=== PATIENT | female | born 1980 | race African-American/Black ===

== ENCOUNTER 2017-03-29 14:52 | Emergency (ER) | payer OTHER ==
[2017-03-29 15:23] VITALS: BP 117/69
--- NOTE | 2017-03-29 15:41 | UC ---
Skin Complaint HPI - HPI Summary HPI Summary: multiple small pimples turned abcesses on hand left breast and side, not draining, no fever, no hx of MRSA, daughter also has similar problem. - History of Current Complaint Chief Complaint: UCSkin Time Seen by Provider: 03/29/17 15:28 Stated Complaint: SKIN COMPLAINT Hx Obtained From: Patient Hx Last Menstrual Period: unknown, depo ?: No Onset/Duration: Sudden Onset, Lasting Days Skin Exposure Onset/Duration: Days Ago Onset Severity: Moderate Current Severity: Moderate Location: Discrete Character: Swelling, Pain, Redness, Raised Aggravating: Touch Alleviating: Nothing - Allergy/Home Medications Allergies/Adverse Reactions: Allergies Allergy/AdvReac Type Severity Reaction Status Date / Time Sulfa Antibiotics Allergy Hives Verified 03/29/17 15:23 Home Medications: Home Medications Docosahexaenoic Acid [ Dha] 200 mg PO DAILY 03/29/17 [History Confirmed 03/29/17] Review of Systems Constitutional: Negative Skin: Other - multiple abcesses on left breast and side, left arm Eyes: Negative ENT: Negative Respiratory: Negative Cardiovascular: Negative Gastrointestinal: Negative Genitourinary: Negative Motor: Negative Neurovascular: Negative Musculoskeletal: Negative Neurological: Negative Psychological: Negative All Other Systems Reviewed And Are Negative: Yes PMH/Surg Hx/FS Hx/Imm Hx Previously Healthy: Yes - Surgical History Surgical History: Yes Surgery Procedure, Year, and Place: hernia repairs 1992 - Family History Known Family History: Positive: Hypertension - Social History Alcohol Use: None Substance Use Type: None Smoking Status (MU): Light Every Day Tobacco Smoker Type: Cigarettes Amount Used/How Often: 6 per day - Immunization History Most Recent Influenza Vaccination: no Physical Exam Triage Information Reviewed: Yes Appearance: Well-Appearing, Well-Nourished, Pain Distress Vital Signs: Initial Vital Signs Temp 98 F 03/29/17 15:18 Pulse 76 03/29/17 15:18 Resp 16 03/29/17 15:18 BP 117/69 03/29/17 15:18 Pulse Ox 98 03/29/17 15:18 Vital Signs Reviewed: Yes Eye Exam: Normal ENT Exam: Normal Dental Exam: Normal Neck exam: Normal Neck: Positive: Supple, Nontender, No Lymphadenopathy Respiratory Exam: Normal Respiratory: Positive: Chest non-tender, Lungs clear, Normal breath sounds Cardiovascular Exam: Normal Cardiovascular: Positive: RRR, No Murmur, Pulses Normal Abdominal Exam: Normal Abdomen Description: Positive: Nontender, No Organomegaly, Soft Bowel Sounds: Positive: Present Musculoskeletal Exam: Normal Musculoskeletal: Positive: Strength Intact, ROM Intact, No Edema Neurological Exam: Normal Psychological Exam: Normal Skin: Positive: significant lesion(s) - multiple non draining abscess. Course/Dx - Course Course Of Treatment: hx obtained, exam performed, meds reviewed, treated for infection. - Differential Diagnoses - Skin Complaint Differential Diagnoses: Abscess, Cellulitis, Contact Dermatitis, Urticaria - Diagnoses Provider Diagnoses: multiple abscess on left arm and brest Discharge - Discharge Plan Condition: Stable Disposition: HOME Prescriptions: Sulfamethox/Trimethoprim DS* [Bactrim DS 800/160 TAB*] 1 tab PO BID #14 tab Patient Education Materials: Abscess (ED) Referrals: No Primary Care Phys,NOPCP [Medical Doctor] - Additional Instructions: 1. keep area clean and dry 2. take the medication as prescribed 3. warm compresses to areas if starts to drain, cover with bandage. 4. follow up if not improving.
== END 2017-03-29 16:05 | disposition home or self-care (01) ==
LOC: UCCORT 14:52
DX: N61.1 Abscess of the breast and nipple (principal); L02.414 Cutaneous abscess of left upper limb
CPT/HCPCS: 99212; G0463

== ENCOUNTER 2017-09-08 21:22 | Emergency (ER) | payer OTHER | END 2017-09-08 23:17 | disposition left against medical advice (07) | LOC: UCCORT 21:22 | DX: R05 Cough (principal); R09.81 Nasal congestion; Z53.21 Procedure and treatment not carried out due to patient leaving prior to being seen by health care provider ==

== ENCOUNTER 2017-09-10 14:57 | Emergency (ER) | payer OTHER ==
[2017-09-10 17:47] VITALS: BP 118/71
--- NOTE | 2017-09-10 18:05 | UC ---
Throat Pain/Nasal Danny HPI - HPI Summary HPI Summary: pt is c/o sinus congestion and facial pressure along with sneezing and a cough. her chest was burning with the cough but that got better; however, sinuses are not improving. pt admits to a headache but denies fever, bodyaches. symptoms for about 4-5 days with worsening. - History of Current Complaint Chief Complaint: UCRespiratory Stated Complaint: CONGESTION, VELASCO, SINUSES Time Seen by Provider: 09/10/17 17:52 Hx Obtained From: Patient Hx Last Menstrual Period: depo, post 9 mo ?: No Pain Intensity: 5 Cough: Nonproductive Associated Signs & Symptoms: Positive: Sinus Discomfort, Nasal Discharge. Negative: Fever Related History: Smoking - Epiglottits Risk Factors Epiglottis Risk Factors: Negative - Allergies/Home Medications Allergies/Adverse Reactions: Allergies Allergy/AdvReac Type Severity Reaction Status Date / Time Sulfa (Sulfonamide Allergy Hives Verified 09/10/17 17:47 Antibiotics) PMH/Surg Hx/FS Hx/Imm Hx Previously Healthy: Yes - Surgical History Surgical History: Yes Surgery Procedure, Year, and Place: hernia repairs 1992 - Family History Known Family History: Positive: Cardiac Disease, Hypertension, Diabetes - Social History Occupation: Employed Full-time Lives: With Family Alcohol Use: None Substance Use Type: None Smoking Status (MU): Light Every Day Tobacco Smoker Type: Cigarettes Amount Used/How Often: 6 per day - Immunization History Most Recent Influenza Vaccination: no Vaccination Up to Date: Yes Review of Systems Constitutional: Negative, Fatigue Skin: Negative Eyes: Negative ENT: Ear Ache, Nasal Discharge, Sinus Congestion, Sinus Pain/Tenderness Respiratory: Cough Cardiovascular: Negative Gastrointestinal: Negative Genitourinary: Negative Motor: Negative Neurovascular: Negative Musculoskeletal: Negative Neurological: Negative Psychological: Negative Is Patient Immunocompromised?: No All Other Systems Reviewed And Are Negative: Yes Physical Exam Triage Information Reviewed: Yes Appearance: Well-Appearing Vital Signs: Initial Vital Signs Temp 98.8 F 09/10/17 17:42 Pulse 84 09/10/17 17:42 Resp 18 09/10/17 17:42 BP 118/71 09/10/17 17:42 Pulse Ox 99 09/10/17 17:42 Vital Signs Reviewed: Yes Eye Exam: Normal ENT: Positive: Pharynx normal, Nasal congestion, Nasal drainage, TMs normal, Sinus tenderness Neck: Positive: Supple, Nontender, No Lymphadenopathy Respiratory: Positive: Chest non-tender, Lungs clear, Normal breath sounds Cardiovascular: Positive: RRR, No Murmur Abdomen Description: Positive: Nontender, No Organomegaly, Soft Bowel Sounds: Positive: Present Musculoskeletal: Positive: No Edema Neurological: Positive: Alert Psychological: Positive: Age Appropriate Behavior Skin Exam: Normal Throat Pain/Nasal Course/Dx - Course Course Of Treatment: sinusitis on exam but symptoms only 4-5 days. will tx otc flonase and decongestant. if not improving, will add antibiotic. - Differential Dx/Diagnosis Provider Diagnoses: sinusitis Discharge - Discharge Plan Condition: Stable Disposition: HOME Prescriptions: Amoxicillin/Clavulanate TAB* [Augmentin TAB 875*] 875 mg PO BID 10 Days #20 tab Patient Education Materials: Sinusitis (ED) Referrals: Keren Bueno MD [Primary Care Provider] - 7 Days Additional Instructions: start flonase over the counter per label and a decongestant per label as well. if no improving in 1-2 days start the antibiotic. start the antibiotic sooner if current symptoms worsening.
== END 2017-09-10 18:10 | disposition home or self-care (01) ==
LOC: UCCORT 14:57
DX: J32.9 Chronic sinusitis, unspecified (principal); F17.210 Nicotine dependence, cigarettes, uncomplicated
CPT/HCPCS: 99212; G0463

== ENCOUNTER 2018-08-05 14:07 | Emergency (ER) | payer OTHER ==
[2018-08-05 15:11] VITALS: BP 117/80
--- NOTE | 2018-08-05 15:38 | UC ---
Complaint Female HPI - HPI Summary HPI Summary: Per burner hand "states was seen at an urgent care 9-10days ago for an abcess, was treated with cephalexin and now states has a yeast infection. c/o white vaginal discharge and itching x 4 days. " -abscess is much better. It was not drained. on genitals, started after shaving , folliculitis. -has had yeast infections and she is certain thsi is lele same. she gets them every time she takes an abx. - History Of Current Complaint Chief Complaint: UCGU Stated Complaint: PERSONAL Time Seen by Provider: 08/05/18 15:36 Hx Last Menstrual Period: unknown Pain Intensity: 0 - Allergies/Home Medications Allergies/Adverse Reactions: Allergies Allergy/AdvReac Type Severity Reaction Status Date / Time Sulfa (Sulfonamide Allergy Hives Verified 08/05/18 15:08 Antibiotics) Home Medications: Home Medications Cephalexin CAP* [Keflex 500 CAP*] 500 mg PO TID 08/05/18 [History Confirmed 06/13] PMH/Surg Hx/FS Hx/Imm Hx Previously Healthy: Yes - Surgical History Surgical History: Yes Surgery Procedure, Year, and Place: hernia repairs 1992 - Family History Known Family History: Positive: Cardiac Disease, Hypertension, Diabetes - Social History Alcohol Use: Rare Substance Use Type: None Smoking Status (MU): Light Every Day Tobacco Smoker Type: Cigarettes Amount Used/How Often: 6 per day - Immunization History Most Recent Influenza Vaccination: no Vaccination Up to Date: Yes Review of Systems All Other Systems Reviewed And Are Negative: Yes Constitutional: Positive: Negative Skin: Positive: Negative Eyes: Positive: Negative ENT: Positive: Negative Respiratory: Positive: Negative Cardiovascular: Positive: Negative Gastrointestinal: Positive: Negative Genitourinary: Positive: Vaginal/Penile Burning, Vaginal/Penile Discharge Motor: Positive: Negative Neurovascular: Positive: Negative Musculoskeletal: Positive: Negative Neurological: Positive: Negative Psychological: Positive: Negative Is Patient Immunocompromised?: No Physical Exam Triage Information Reviewed: Yes Appearance: Well-Appearing, No Pain Distress, Well-Nourished - very pleasant Vital Signs: Initial Vital Signs Temp 97.7 F 08/05/18 15:07 Pulse 63 08/05/18 15:07 Resp 15 08/05/18 15:07 BP 117/80 08/05/18 15:07 Pulse Ox 100 08/05/18 15:07 Eye Exam: Normal ENT Exam: Normal ENT: Positive: Pharynx normal Respiratory Exam: Normal Respiratory: Positive: Lungs clear, Normal breath sounds, No respiratory distress, No accessory muscle use Cardiovascular Exam: Normal Cardiovascular: Positive: RRR, No Murmur Abdomen Description: Positive: Nontender, Soft Pelvic Exam: Positive: Other - deferred Musculoskeletal Exam: Normal Neurological Exam: Normal Psychological Exam: Normal Complaint Female Dx - Course Course Of Treatment: vaginal candidiasis s/p abx use. she has 1 more day of abx to take. requests topical for sx relief. cn buy OTC terazol or monsitat. also diflcuan 150mgs po x 1 dose w/ 1 RF. can take 2nd if still ahs sx in 1 wk. - Differential Dx/Diagnosis Differential Diagnosis/HQI/PQRI: Bartholin Cyst Provider Diagnosis: Candidiasis of genitalia in female Discharge - Sign-Out/Discharge Documenting (check all that apply): Patient Departure All imaging exams completed and their final reports reviewed: No Studies - Discharge Plan Condition: Stable Disposition: HOME Prescriptions: Fluconazole 150 MG TAB* [Diflucan 150 MG TAB*] 150 mg PO ONCE 1 Days #1 tablet Patient Education Materials: Yeast Infection (ED) Referrals: Monique SCHMIDT,Darrell Parrish [Primary Care Provider] - If Needed Additional Instructions: You should buy over the counter terazol or monistat to use for relief a well as the diflucan. I have given you a RF of 1 tablet of the diflucan. If you still have symptoms after 1 week, you can take the second pill. - Billing Disposition and Condition Condition: STABLE Disposition: Home
== END 2018-08-05 15:54 | disposition home or self-care (01) ==
LOC: UCCORT 14:07
DX: B37.49 Other urogenital candidiasis (principal); Z88.1 Allergy status to other antibiotic agents; F17.210 Nicotine dependence, cigarettes, uncomplicated
CPT/HCPCS: 99212; G0463